=== PATIENT | female | born 1935 | race Caucasian/White ===

== ENCOUNTER 2019-08-15 21:17 | Inpatient (IN) ==
[2019-08-15 22:05] LABS: HEMATOCRIT 31.5 % (37.0-47.0); HEMOGLOBIN 10.1 g/dL (12.0-16.0); RBC 3.43 XMIL (4.2-5.4); WBC 5.43 X1000 (4.8-10.8)
[2019-08-15 22:06] LABS: BASO# 0.03 X1000 (0.0-0.2); BASO% 0.6 % (0.0-0.8); EOS# 0.21 X1000 (0.0-0.7); EOS% 3.9 % (0.0-10.0); IMM GRAN# 0.01 X1000 (0.0-0.04); IMM GRAN% 0.2 % (0.0-0.5); LYMPH# 2.09 X1000 (1.2-3.4); LYMPH% 38.5 % (20.5-51.1); MCH 29.4 PG (27-31); MCHC 32.1 g/dL (33-37); MCV 91.8 FL (81-99); MONO# 0.58 X1000 (0.11-0.59); MONO% 10.7 % (1.7-9.3); MPV 10.2 FL (7.4-10.4); NEUT# 2.51 X1000 (1.4-6.5); NEUT% 46.1 % (42.2-75.2); PLT 264 X1000 (130-400); RDW 12.9 % (11.5-14.5)
--- NOTE | 2019-08-15 22:08 | PROVIDER DOCUMENTATION ---
This chart was entered by Miguel Cortes Scribe, acting as scribe for Lubna Rowland CRNP. HPI-General Adult - General Source: patient, family - History of Present Illness -Gen Adult Nature of Presenting Problems: Pt is a 84 yof who presents to the ED with a CC of high blood pressure. States she had a TIA in the past and was told to go to an ER if the diastolic BP is > 100. Reports this evening, she checked her BP before bed and her DBP was 113 so she came to ED. States she does not take any BP medications currently. Reports she had a syncopal episode while in the shower 3 days ago. Denies known head injury. Reports hx of syncopal episodes in past. Per patient's home BP cuff history, SBP average between 74-180 and DBP 50-120. Denies neck pain, visual changes, CP, n/v, dizziness, or SOB. Location of Pain/Injury: reports: head, generalized Pain Radiation: reports: no radiation Quality of Pain: reports: dull Severity: reports: mild Onset/Duration: reports: 3 days ago Timing: reports: still present Modifying Factors: improves with: nothing Associated Symptoms: reports: headaches, syncope. denies: back/neck pain, chest pain, diaphoresis, diarrhea, fatigue, fever/chills, nausea, shortness of breath, weakness Similar Symptoms Previously?: No Recently seen or treated by another doctor?: No <Lubna Rowland - Last Filed: 08/17/19 01:30> <Priya Sahni - Last Filed: 08/17/19 06:28> - General Chief Complaint: B/P Problems Stated Complaint: BP PROBLEMS Time Seen by Provider: 08/15/19 21:36 Allergies/Adverse Reactions: Patient Allergies Allergy/AdvReac Type Severity Reaction Status Date / Time ofloxacin [From Floxin] Allergy Severe Unknown Verified 08/15/19 21:28 clarithromycin [From Biaxin] Allergy Intermediate FATIGUE Verified 08/15/19 21:28 Penicillins Allergy Intermediate RASH Verified 08/15/19 21:28 rofecoxib [From Vioxx] Allergy Mild HEADACHE Verified 08/15/19 21:28 atropine [From ] Allergy DIZZINESS Verified 08/15/19 21:28 azithromycin Allergy DIARRHEA Verified 08/15/19 21:28 brompheniramine Allergy Unknown Verified 08/15/19 21:28 hyoscyamine [From Levbid] Allergy DIZZINESS Verified 08/15/19 21:28 nabumetone [From Relafen] Allergy Unknown Verified 08/15/19 21:28 phenobarbital [From ] Allergy DIZZINESS Verified 08/15/19 21:28 scopolamine [From ] Allergy DIZZINESS Verified 05/29/19 13:47 tetracycline Allergy NAUSEA/VOMI Verified 05/29/19 13:47 TING robinal forte Allergy DIZZINESS Uncoded 05/29/19 13:47 Home Medications: Home Medication List Medication Instructions Recorded Confirmed Last Taken Type Clopidogrel Bisulfate [Plavix] 75 mg PO DAILY 03/21/14 08/16/19 08/15/19 08:00 History Latanoprost 0.005% Oph Soln 1 drop OPH HS 03/21/14 08/16/19 08/14/19 21:00 History [Xalatan 0.005% Oph Soln] Sertraline HCl [Zoloft] 50 mg PO HS 03/21/14 08/16/19 08/14/19 21:00 History Dorzolamide HCl/Pf [Dorzolamide 2% 10 ml OPHTHALMIC (EYE) DAILY 05/29/19 08/16/19 08/14/19 21:00 History Eye Drop] Methen/Sod Phos/Meth Blue/Hyos 1 ea PO PRN PRN 05/29/19 08/15/19 Unknown History [Urogesic-Blue Tablet] Multivit-Min/FA/Lycopen/Lutein 1 ea PO DAILY 05/29/19 08/16/19 08/15/19 09:00 History [Centrum Silver Tablet] PRAVAstatin [Pravachol] 20 mg PO DAILY 05/29/19 08/16/19 08/15/19 21:00 History Calcium Carbonate/Vit D3 [Caltrate 1 ea PO DAILY 08/16/19 08/16/19 08/15/19 09:00 History 600 + D] Review of Systems - Adult - REVIEW OF SYSTEMS - ADULT Constitutional: reports: no symptoms reported. denies: chills, fever Eyes: reports: no symptoms reported. denies: decreased vision, blurred vision, double vision Ears, Nose, Mouth & Throat: reports: no symptoms reported. denies: ear pain, throat pain Cardiovascular: reports: no symptoms reported. denies: chest pain, palpitations Respiratory: reports: no symptoms reported. denies: cough, dyspnea on exertion, shortness of breath Gastrointestinal: reports: no symptoms reported. denies: diarrhea, nausea, vomiting Genitourinary: reports: no symptoms reported Musculoskeletal: reports: no symptoms reported. denies: back pain, neck pain Integumentary: reports: no symptoms reported Neurological: reports: see HPI, headache/migraines, syncope, tremors. denies: dizziness/vertigo, paresthesia, seizure, slurred speech Psychiatric: reports: no symptoms reported Endocrine: reports: no symptoms reported <Lubna Rolwand - Last Filed: 08/17/19 01:30> Past History - Adult - PAST MEDICAL HISTORY-ADULT Review of Records: reports: Nursing Assessment Review, Medications Reviewed, Social history reviewed & non-contributory. Major Childhood Illnesses: reports: denies history Cardiovascular: reports: HTN Respiratory: reports: denies history Gastrointestinal: reports: denies history Obstetrical/Gynecological: reports: denies history Genitourinary: reports: other (interstitial cysitis) Musculoskeletal: reports: arthritis Neurological: reports: TIA Psychiatric: reports: denies history Endocrine/Immune: reports: denies history Other Conditions: reports: denies history - PRIOR SURGERIES/PROCEDURES Surgical/Procedure History: reports: hysterectomy - IMMUNIZATION STATUS Childhood Immunizations: See Nurse Assessment Flu Vaccine: See Nurse Assessment - FAMILY HISTORY Family History: reviewed, not pertinent - SOCIAL HISTORY Smoking: denies, non-smoker Substance Use: none/never, denies Alcohol Use Frequency: never <Lubna Rowland - Last Filed: 08/17/19 01:30> Physical Exam-General - PHYSICAL EXAM-ADULT Initial Vital Signs Reviewed: Yes - CONSTITUTIONAL General Appearance: appears well, alert, no apparent distress. negative: lethargic, slow to respond, obtunded - EYES Eyes: PERRL/EOMI, pink conjunctivae. negative: EOM palsy, scleral icterus - HEAD, EARS, NOSE, MOUTH & THROAT HENMT: normocephalic/atraumatic, moist mucous membranes. negative: angioedema - NECK Neck: non-tender, full range of motion, supple, normal inspection - RESPIRATORY Respiratory: chest non-tender, lungs clear, normal breath sounds, no pleuratic chest pain, no respiratory distress, no accessory muscle use. negative: crackles, rales, rhonchi, stridor, wheezing - CARDIOVASCULAR Cardiovascular: regular rate, rhythm, no gallop - MUSCULOSKELETAL Back Exam: normal inspection Extremity: normal range of motion, non-tender, normal inspection, pelvis stable - SKIN Integumentary: normal color, warm/dry. negative: cyanosis, jaundice, mottled, pallor - NEUROLOGIC Neurologic: grossly normal, no motor/sensory deficits. negative: aphasia, EOM palsy, facial droop, focal weakness, motor weakness, sensory deficit - PSYCHIATRIC Psych/Mental Status: normal mood/affect, normal thought content, normal thought process, oriented x 3 <Lubna Rowland - Last Filed: 08/17/19 01:30> Progress - PLAN OF CARE/RESULTS Progress/Plan/Lab Results: Vital Signs - 8 hr 08/15/19 21:19 Temperature 97.5 F L Pulse Rate 60 Respiratory Rate 18 Blood Pressure 158/74 O2 Sat by Pulse Oximetry [address] findings of intraparenchymal hemorrhage. Patient reports she would like to be transferred to for management. Dr. Sahni spoke with Transfer center at 2330. Awaiting Neurosurgery call back. Result Diagrams: 08/16/19 13:33 08/16/19 13:33 - REASSESSMENT Reassessment #1 Time Reassessed: 00:57 Reassessment Comment: Dr. Weaver paged regarding admission/follow up head CT - EKG 1 Time of EKG reading by physician:: 21:52 EKG Read and Signed by:: Priya Sahni EKG Interpretation (*Must complete 3 of following elements*): Normal (Sinus rhythm with 1st degree AV block; No STEMI) Rate: 61 Rhythm: Sinus rhythm with 1st degree AV block [place]: normal QRS: normal [place] Interval: normal ST Wave: normal - XRAY 1 XRAY: Bilateral XRAY Study: Chest Impression: Normal ("No acute abnormalities" as read by Dr. Sahni) - CT/MRI 1 CT Study: Head Impression: See EMR Report ("1. Question small area of intraparenchymal hemorrhage in the superior left frontal lobe. No surrounding edema or mass- effect. Recommend comparison with prior imaging. If none available, short term follow-up imaging recommended. 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 Sahni spoke with for intraparenchymal hemorrhage Consult Disposition: other (Awaiting Neurosurgery call back) #3 Consult: Dr. Rodriguez, Neurosurgery Time Discussed: 00:42 Reason/Comments: Intraparenchymal hemorrhage Consult Disposition: other (Neurosurgery declined admission as no operative management needed. Recommend admission in our hospital and f/u head CT or transfer to ER/hospitalist) - CHANGE OF SHIFT REPORT (ED Provider) 1 Report Given and Care Transferred to:: Kait[facility] Time of Transfer: 01:14 Items Pending: Physician Consult/Arrival (Hospitalist admission) <Lubna Rowland - Last Filed: 08/17/19 01:30> - PLAN OF CARE/RESULTS Progress/Plan/Lab Results: Awaited page for Dr Weaver after multiple tries. Ultimately we ended up speaking the Randall Johnson NP for hospitalist at [place] who accepted the patient for admission. Initially told that they would like the patient in the ICU at [facility]. Approx 1 hour later at around [address] Weaver who states that he have watched these patients here before and is comfortable with her staying here in an ICU bed. Orders placed per his recommendations Result Diagrams: 08/16/19 13:33 08/16/19 13:33 <Priya Sahni - Last Filed: 08/17/19 06:28> Departure - Departure Date of Disposition Decision: 08/17/19 Time of Disposition Decision: 05:04 Certified Medical Emergency: Emergent - Critical Care Note This patient required my direct & personal management of CC.: No <Lubna Rowland - Last Filed: 08/17/19 01:30> <Priya Sahni - Last Filed: 08/17/19 06:28> - Departure DIAGNOSIS: Intraparenchymal hemorrhage of brain, Elevated blood pressure reading UTI (urinary tract infection) Qualifiers: Urinary tract infection type: acute cystitis Hematuria presence: with hematuria Qualified Code(s): N30.01 - Acute cystitis with hematuria Anemia Qualifiers: Anemia type: unspecified type Qualified Code(s): D64.9 - Anemia, unspecified Disposition: ADMITTED INPATIENT 09 Condition: Stable Attestation - Physician/ GARRETT Attestation Patient care was provided by Advanced Practice Provider:: Yes Advanced Practice Provider:: Lubna Rowland Advanced Practice Provider documentation review:: The Mid-level provider documentation, treatment plan and medical decision making was reviewed by the physician who agrees with all treatment and medical decision making by the P. The physician spent face to face time with patient:: Yes (Kaitlyn) Advanced Practice Provider documentation review:: Supervising physician onsite and consulted in the evaluation and care of this patient. The physician did have a face to face encounter with the patient. <Lubna Rowland - Last Filed: 08/17/19 01:30> - NIH Stroke Scale NIH Type: Initial Evaluation Level of Consciousness: 0-Alert LOC Questions (ask month and age): 0-Answers Both Correctly LOC Commands (ask to open & close eyes;make a fist, let go): 0-Obeys Both Correctly Best Gaze (horizontal eye movement): 0-Normal Visual (use finger movement, counting or visual threat): 0-No Visual Loss Facial Palsy (show teeth or raise eyebrows & close eyes tght: 0-Symmetrical Movement Motor Function-left arm: 0-Normal Motor Function-right arm: 0-Normal Motor Function-left le-Normal Motor Function-right le-Normal Limb Ataxia(lnnsjw-aqum-sbeewz, or heel to contreras): 0-No Ataxia Sensory(pin prick to face,arms,trunk,legs-compare side/side): 0-No Ataxia Best Language(name item/read sentence.Ex-Down to Earth): 0-No Aphasia Dysarthria(Pt read words or say words Ex.Mama,Tip-Top,Thanks: 0-Normal Articulation Extinction and Inattention: 0-Normal NIH Total Score: 0 <Lubna Rowland - Last Filed: 08/17/19 01:30> Additional Progress - ADDITIONAL CONSULTS #4 Consult: Jaskaran Johnson Time Discussed: 05:04 Reason/Comments: Intraparenchymal hemorrhage Consult Disposition: Admit #5 Consult: Jaskaran Weaver Time Discussed: 05:45 Reason/Comments: Intraparenchymal hemorrhage Consult Disposition: Admit <Lubna Rowland - Last Filed: 08/17/19 01:30> This chart was documented by the indicated scribe, (Miguel Cortes, Scribe) and accurately reflects the services I performed and decisions made by , Lubna Rowland CRNP, as attested by the provider's signature.
[2019-08-15 22:34] LABS: AGAP 9; ALBUMIN 4.1 g/dL (3.5-5.0); ALKALINE PHOSPHATASE 108 U/L (32-104); BUN 21 mg/dL (8-22); CHLORIDE 100 mmol/L (98-107); CK PROFILE 111 U/L (24-173); COSMO 270; CREATININE 0.9 mg/dL (0.5-0.9); ESTIMATED GFR 60; GLUCOSE 105 mg/dL (70-104); GOT 20 U/L (10-30); GPT 14 U/L (10-36); SODIUM 133 mmol/L (136-145); TCO2 24 mmol/L (25-35); TOTAL BILIRUBIN < 0.15 mg/dL (0.20-1.00); TOTAL PROTEIN 6.4 g/dL (6.3-8.3)
[2019-08-15 22:53] LABS: BILIRUBIN URINE NEGATIVE (NEGATIVE); BLOOD URINE 2+ (NEGATIVE); CLARITY CLEAR (CLEAR); COLOR YELLOW; GLUCOSE URINE NEGATIVE (NEGATIVE); KETONE URINE NEGATIVE (NEGATIVE); LEUKOCYTES URINE 1+ (NEGATIVE); NITRITE URINE NEGATIVE (NEGATIVE); PH URINE 6.5; PROTEIN URINE NEGATIVE (NEGATIVE); UROBILINOGEN URINE NORMAL
[2019-08-15 22:54] LABS: URINE EPITHELIAL CELLS <10 /HPF (<10)
[2019-08-15 22:55] LABS: URINE BACTERIA 2+ /HFP; URINE SOURCE CLEAN CATCH; URINE WBC <10 /HPF (<10)
[2019-08-15 22:56] LABS: URINE RBC <10 /HPF (<10)
[2019-08-15] MEDS ORDERED: MACROBID PO ONE (23:00)
--- NOTE | 2019-08-16 06:35 | EKG Report ---
Test Performed on : 08/15/2019 9:49:36 PM Test Reason : HTN Blood Pressure : / mmHG Vent. Rate : 061 BPM Atrial Rate : 061 BPM P-R Int : 212 ms QRS Dur : 076 ms QT Int : 400 ms P-R-T Axes : 074 046 056 degrees QTc Int : 402 ms Sinus rhythm. with 1st degree AV block. Otherwise normal ECG When compared with ECG of 29-MAY-2019 13:59, No significant change was found Unconfirmed Result
--- NOTE | 2019-08-16 06:39 | Diag Imaging Result Doc PS360 ---
EXAM: CHEST-1 VIEW HISTORY: HTN TECHNIQUE: Single view COMPARISON: None. FINDINGS: Poor inspiratory effort. The heart is not enlarged. The vessels are mildly distended. There are no infiltrates. No effusion identified. IMPRESSION: Mild vascular prominence. Follow-up PA and lateral recommended. Electronically signed by Jam Ramirez 08/16/2019 6:37 AM
--- NOTE | 2019-08-16 06:46 | Diag Imaging Result Doc PS360 ---
EXAM: CT HEAD W/O CONTRAST HISTORY: Acute syncope/AMS resolved TECHNIQUE: CT head without contrast COMPARISON: None. FINDINGS: There is a 6 mm hyperdense area in the left parietal lobe. 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 Chronic microvascular ischemic changes. No hydrocephalus. No subarachnoid hemorrhage. No epidural or subdural hematoma. IMPRESSION: 1.Possible tiny left parietal hemorrhage. Follow-up CT recommended. 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 3.A preliminary report was given at 11:20 PM on 08/15/2019 This exam was performed using automated exposure control, adjustment of mA or kV according to patient size, and/or use of iterative reconstruction technique. Electronically signed by Jam Ramirez 08/16/2019 6:44 AM
[2019-08-16] MEDS ORDERED: NORVASC PO SCH (10:15)
[2019-08-16] MEDS ORDERED: TYLENOL PO PRN (12:22)
[2019-08-16] MEDS ORDERED: ZOFRAN IV PRN (12:22)
[2019-08-16] MEDS: NS 1,000 ML IV SCH (12:28)
[2019-08-16 13:46] LABS: BASO# 0.03 X1000 (0.0-0.2); BASO% 0.6 % (0.0-0.8); EOS# 0.11 X1000 (0.0-0.7); EOS% 2.2 % (0.0-10.0); HEMATOCRIT 35.1 % (37.0-47.0); HEMOGLOBIN 11.5 g/dL (12.0-16.0); IMM GRAN# 0.03 X1000 (0.0-0.04); IMM GRAN% 0.6 % (0.0-0.5); LYMPH# 1.53 X1000 (1.2-3.4); LYMPH% 31.1 % (20.5-51.1); MCHC 32.8 g/dL (33-37); MCV 91.6 FL (81-99); MONO# 0.39 X1000 (0.11-0.59); MONO% 7.9 % (1.7-9.3); MPV 10.1 FL (7.4-10.4); NEUT# 2.83 X1000 (1.4-6.5); NEUT% 57.6 % (42.2-75.2); PLT 254 X1000 (130-400); RBC 3.83 XMIL (4.2-5.4); RDW 12.8 % (11.5-14.5); WBC 4.92 X1000 (4.8-10.8)
[2019-08-16 14:04] LABS: CALCIUM 8.6 mg/dL (8.8-10.2); CREATININE 0.9 mg/dL (0.5-0.9); POTASSIUM 3.7 mmol/L (3.5-5.1)
[2019-08-16] MEDS ORDERED: BLISTEX MEDICATED BERRY LIP BALM TOP PRN (14:55)
--- NOTE | 2019-08-16 14:58 | Diag Imaging Result Doc PS360 ---
EXAM: CT HEAD W/O CONTRAST HISTORY: INTRAPARENCHYMAL BLEED TECHNIQUE: CT head without contrast COMPARISON: 08/15/2019 FINDINGS: No change in the size of the tiny hyperdense focus in the left parietal lobe which may represent a tiny parenchymal hemorrhage. No other evidence of an acute hemorrhage. Old left infarct. Mild atrophy. IMPRESSION: No interval change. This exam was performed using automated exposure control, adjustment of mA or kV according to patient size, and/or use of iterative reconstruction technique. Electronically signed by Jam Ramirez 08/16/2019 2:56 PM
--- NOTE | 2019-08-16 15:09 | Diag Imaging Result Doc PS360 ---
EXAM: CT ANGIOGRAM HEAD/NECK HISTORY: intraparechymal bleed TECHNIQUE: 1. CT angiogram head with contrast. Arterial protocol with MIP images. 2. CT angiogram neck with intravenous contrast. Arteriogram protocol with MIP images. COMPARISON: None. FINDINGS: Suboptimal exam. CT angiogram head: Normal flow in the distal internal carotid arteries. Normal flow in the basilar artery. Normal flow in the anterior and middle cerebral arteries. Normal filling of the posterior cerebral arteries. CT angiogram neck: Normal flow in each common carotid artery and proximal internal carotid artery. Normal flow in each vertebral artery. No occlusion or stenosis. IMPRESSION: CT angiogram head: Negative study CT angiogram neck: Negative exam This exam was performed using automated exposure control, adjustment of mA or kV according to patient size, and/or use of iterative reconstruction technique. Electronically signed by Jam Ramirez 08/16/2019 3:07 PM
[2019-08-16] MEDS: COZAAR PO SCH (15:14)
--- NOTE | 2019-08-16 16:57 | HISTORY AND PHYSICAL ---
HISTORY OF PRESENT ILLNESS: Briefly this is a 84-year-old female with history of TIA, really not much else, who noticed her blood pressure was creeping up yesterday, diastolics above 100, so she came in. Now she reports about 3 days ago she fell in the shower. She is not quite sure if she hit her head. She woke up and she was kind of mcfp there. She has noticed her blood pressures have been trending upwards, systolics of 170, diastolics in the 100s. She is not on any blood pressure medication. She denies any presyncope. This episode was associated with constipation and going to the bathroom. Workup in the ER was unremarkable, except for a tiny hint of possible intraparenchymal hemorrhage, and she will be admitted for syncope workup and monitoring of this intraparenchymal hemorrhage. PAST MEDICAL HISTORY: 1. Not hypertension, but she probably does have hypertension. 2. TIA. 3. Hyperlipidemia. 4. She has had interstitial cystitis. PAST SURGICAL HISTORY: She has had a hysterectomy. SOCIAL HISTORY: No tobacco or ethanol. She is . ALLERGIES: Ofloxacin, clarithromycin, penicillin, rofecoxib, atropine, azithromycin, brompheniramine, Levbid, Relafen, , tetracycline and Robinul. REVIEW OF SYSTEMS: Otherwise negative times a 10 point review of systems. FAMILY HISTORY: Her mother had heart disease, stroke I believe. No cancers. PHYSICAL EXAMINATION: VITAL SIGNS: Current blood pressure 149/75, heart rate of 90, respiratory rate of 21, temperature of 98.2 degrees. GENERALLY: She is a well-developed female in no acute distress. HEAD EXAM: Normocephalic, atraumatic. She does have a little superficial abrasion on her right frontal area. EYE EXAM: Pupils equal, round, reactive to light. Extraocular movements were intact. Sclerae anicteric. EAR, NOSE AND THROAT EXAM: She had moist mucous membranes. NECK EXAM: Supple. CARDIOVASCULAR EXAM: Regular rate and rhythm. No murmurs, gallops, or rubs. PULMONARY EXAM: Bilateral breath sounds. Clear to auscultation. GI: Soft, nontender, nondistended. Bowel sounds are positive. NEURO EXAM: Nonfocal. Cranial nerves 2-12 were each assessed and were normal. MUSCULOSKELETAL EXAM: 4/5. She does have a little bit of an occasional intention tremor. SKIN EXAM: Noteworthy for just small petechiae kind of everywhere; face, around her lips, arms, just very tiny petechiae. LABORATORY DATA: 1. White count 5, hemoglobin and hematocrit 10 and 31, platelets 264. 2. Sodium 133. 3. Urine was negative. IMAGING STUDIES: Head CT showed a little bit of a hyperdense area, 6 mm, in left parietal. ASSESSMENT: 1. This is an 84-year-old female who has very limited medical history, who came in with an episode of syncope 3 days ago and now has a little bit of intraparenchymal hemorrhage. Unclear if this was the inciting incident versus a secondary traumatic incident. In any case, for intraparenchymal hemorrhage the case was discussed with Neurosurgery. Dr. Orosco in [place] did not recommend transfer to neurosurgical evaluation as she was a non operative candidate, and that conservative therapy was acceptable. She would need a repeat head CT in 12 hours and could be monitored at our facility or at [facility]. We will also keep an eye on her blood pressure. I do not think this is a hemorrhagic stroke and she certainly has no deficit. We will obviously hold her Plavix, and we will have to kind of decide when to resume her Plavix. 2. Hypertension. I am going to start amlodipine and we will follow. 3. Dyslipidemia. We will continue her Pravachol. 4. Anemia, which may be contributing to other issues. We are going to pursue anemia workup and follow. This is a patient of Rachel Major. We were going to initially keep her at [facility], but their CT scanner is down and intensive care unit is unavailable right now, so she is going to the [facility] for monitoring. 5. Syncope. Will monitor on telemetry, get a couple more enzymes, echocardiogram , carotid and follow. cc: Sathish Weaver MD [facility]y
--- NOTE | 2019-08-16 18:40 | PROGRESS NOTE ---
DATE: 08/16/2019 SUBJECTIVE: Ms. Del Angel came from [place] after she presented over there last night due to elevated blood pressure, and was found to have a tiny bleed in the left parietal lobe on the CAT scan. The ER physician in [place] spoke with Dr. Saldana, neurosurgeon in [facility] at about 0042 hours early this morning, who recommended to keep the patient here because there was nothing that they were going to do differently in [facility]. She did, however, recommend to repeat a CT scan. Unfortunately, [place] CAT scan was down, so the patient was transferred over here for repeat CAT scan and medical management. OBJECTIVE: I went to evaluate Ms. Del Angel when she arrived. She referred to be doing well. She did not have any neurologic deficit. Her vital signs reveal a mildly elevated blood pressure with a systolic of about 166 at the time of my encounter. Her power was 5/5 in all extremities. No sensation deficit. No speech and no cranial nerve deficit. DIAGNOSTIC DATA: We did order a repeat CAT scan, which shows no interval change; a small focus in the left parietal lobe, which may represent a tiny parenchymal hemorrhage. CTA of the head and neck shows normal study; no stenosis or aneurysms. ASSESSMENT AND PLAN: 1. Tiny left parietal parenchymal hemorrhage. This is most likely hypertensive bleed. The patient presented from home with a blood pressure of 176/113. This has progressively gotten better. We will continue to aggressively control her blood pressure. Ms. Del Angel was on Plavix previously for an ischemic stroke. This will be withheld. 2. History of previous transient ischemic attack noted. 3. Dyslipidemia. We will continue with her home pravastatin. 4. We will continue to observe Ms. Del Angel in the hospital for another 24 hours, and hopefully discharge her tomorrow if she remains completely stable and asymptomatic. cc: Jamal Richardson MD
[2019-08-16] MEDS ORDERED: XALATAN 0.005% OPH SOLN BOTH EYES SCH (21:00)
[2019-08-16] MEDS ORDERED: ZOLOFT PO SCH ×2 (21:00)
[2019-08-16] MEDS ORDERED: PRAVACHOL PO SCH (21:00)
[2019-08-17] MEDS: NS 1,000 ML IV SCH (05:33)
[2019-08-17 06:50] LABS: IRON SATURATION 23 %; TIBC 221 ug/dL; TOTAL IRON 51 ug/dL (49-151); UNBOUND IRON 170 ug/dL (112-346)
[2019-08-17 07:07] LABS: FERRITIN 164 ng/mL (13-150)
[2019-08-17 08:17] VITALS: BP 128/73
[2019-08-17] MEDS: COZAAR PO SCH (08:29)
[2019-08-17] MEDS ORDERED: TRUSOPT 2% OPH SOLN OPH SCH (09:00)
[2019-08-17] MEDS ORDERED: CENTRUM SILVER PO SCH (09:00)
[2019-08-17] MEDS ORDERED: CALTRATE 600 + D PO SCH ×2 (09:00)
[2019-08-17] MEDS ORDERED: NORVASC PO SCH (09:00)
[2019-08-17] MEDS ORDERED: PRAVACHOL PO SCH (21:00)
--- NOTE | 2019-08-18 07:32 | DISCHARGE SUMMARY ---
ADMISSION DATE: 08/15/2019 DISCHARGE DATE: 08/17/2019 DISPOSITION: Home. FOLLOWUP: 1. Dr. Rachel Major. 2. Dr. Lee. CONSULTATIONS DURING ADMISSION: None. IMAGING STUDIES OF SIGNIFICANCE: 1. A chest x-ray did show mild vascular prominence. 2. A CT scan of the head which was done initially showed possible tiny left parietal hemorrhage or left frontal parietal infarct with chronic microvascular changes. 3. A repeat CAT scan done on 08/16/2019 showed tiny left parietal lobe parenchymal hemorrhage. No interval change. 4. CTA of the head and neck was negative. ADMISSION DIAGNOSES: 1. Small intraparenchymal hemorrhage. 2. Hypertension. 3. Dyslipidemia. 4. Syncope. DISCHARGE DIAGNOSES: 1. Tiny left parietal parenchymal hemorrhage most likely hypertensive bleed. 2. History of previous transient ischemic attack. 3. Dyslipidemia. 4. Glaucoma. DISCHARGE MEDICATIONS: 1. Sertraline 50 mg p.o. at bedtime. 2. Multivitamin. 3. Pravastatin 40 mg p.o. daily. 4. Losartan 50 mg p.o. daily. 5. Amlodipine 5 mg p.o. daily. 6. Calcium supplement. 7. Xalatan eye drops. DISCONTINUED MEDICATIONS: Clopidogrel. PRESENTING COMPLAINT: Elevated blood pressure. HISTORY OF PRESENTING COMPLAINT: Ms. Del Angel is an 84-year-old female who presented to [facility] because of elevated blood pressure. Upon presentation, she was evaluated. Initially, her blood pressures were extremely elevated. A CT scan of the head was done which did reveal mild left parietal hemorrhage. A consultation was done with [facility] neurosurgery services. However, per documentation, the neurosurgeon optoelectronic technician did advise to observe the patient here because there was nothing that they were going to do any differently. Unfortunately, the CAT scan power was broken so Ms. Del Angel was transferred to [facility] for CAT scan repeat and neuro observation. HOSPITAL COURSE: Ms. Del Angel was admitted to [facility] where neuro checks was done. According to protocol, she did not have any neurological deficit. Speech was normal, and there was not any motor or sensory deficit. Blood pressures were managed accordingly. A CT scan was repeated which did not show any interval progression or any interval change. CT of the neck and brain did not show any aneurysm or any stenosis. On the day of the discharge, Ms. Del Angel referred to be doing a whole lot better. Denies any new complaints. Blood pressures are better controlled. We think she is stable for discharge. She is going to follow up with Dr. Rachel Major, and she has been given information to also follow up with Neurology Dr. Lee. Ms Del Angel was on Plavix previously for TIA's. This has been withheld because of acute intraparenchymal bleed. All the discharge instructions have been discussed with Ms. Del Angel, and she refers understanding. On the day of discharge, her vitals are blood pressure 128/73, pulse over 79, respirations 15, and temperature 96.6 degrees. The patient was saturating 100% on room air. She is clinically stable for discharge. TIME SPENT: Time spent for time spent for discharge is 35 minute. cc: MD Rachel Ordonez MD Eston G. Norwood III, MD
== END 2019-08-17 09:52 | disposition home or self-care (01) | DRG 66 ==
LOC: P.ED 21:17 → P.EDIPHOLD 21:18 → SUATTDRO 21:18
PROVIDERS: ATTEND Internal Medicine